=== PATIENT | female | born 1940 | race Caucasian/White ===

== ENCOUNTER 2016-08-13 19:38 | Observation (INO) | payer OTHER, MEDICARE ==
[~2016-08-13] VITALS: Ht 165.1 cm; Wt 95.9 kg
[2016-08-13 19:54] LABS: POINT-OF-CARE METER ID UU14100415; POINT-OF-CARE USER ID NUTMMM10
[2016-08-13 20:33] LABS: HEMATOCRIT 45.8 % (36.0-46.0); MCH 29.5 PG (29.0-34.0); MCHC 32.5 G/DL (30.0-36.0); MCV 90.7 FL (83-99); MEAN PLAT.VOLUME 10.2 uM^3 (9.5-12.4); PLATELET COUNT 435 K/uL (156-360); RBC DIS.WIDTH-SD 42.6 % (39-53); RED BLOOD COUNT 5.05 M/uL (3.80-5.20)
[2016-08-13 21:34] LABS: CHLORIDE 105 mEq/L (99-109); SODIUM 142 mEq/L (136-147)
[2016-08-13 21:37] LABS: GLUCOSE 125 mg/dL (70-99)
[2016-08-13 21:38] LABS: ANION GAP 12 MEQ/L (2-14)
[2016-08-13 21:39] LABS: TOTAL BILIRUBIN 1.1 mg/dL (0.0-1.0)
[2016-08-13 21:40] LABS: ALKALINE PHOSPHATASE 102 IU/L (3-129); GFR ESTIMATE (CALCULATED) > 59 mL/min/
[2016-08-13 21:41] LABS: UREA NITROGEN (BUN) 17 mg/dL (9-23)
[2016-08-13 21:44] LABS: TROP-I INTERPRETATION NEGATIVE; TROPONIN-I < 0.01 ng/mL (0.0-0.30)
[2016-08-14] MEDS ORDERED: XARELTO20 MG PO (00:47)
[2016-08-14] MEDS ORDERED: OXYBUTYNIN CHLOR5 MG PO (00:48)
[2016-08-14] MEDS ORDERED: ATORVASTATIN CA40 MG PO (00:48)
[2016-08-14] MEDS ORDERED: DONEPEZIL HCL10 MG PO (00:48)
[2016-08-14] MEDS ORDERED: SYNTHROID125 MCG PO (00:48)
[2016-08-14] MEDS ORDERED: TRAMADOL HCL50 MG PO (00:48)
[2016-08-14 04:18] LABS: HDL CHOLESTEROL 60 MG/DL (Desirable>=50); LDL CHOLESTEROL 136 mg/dL (Desirable<100); NON-HDL CHOLESTEROL 165 mg/dL (Desirable<160); TOTAL CHOLESTEROL 225 mg/dL (Desirable<200); TRIGLYCERIDES 145 MG/DL (Normal: <150)
[2016-08-14 08:00] VITALS: BP 132/68
[2016-08-14 08:05] VITALS: BP 123/79
[2016-08-14 10:21] LABS: Estimated Average Glucose 128 mg/dL (70-123); HEMOGLOBIN A1c (GLYCOHEMOGLOB) 6.1 % HGB (Below 5.7)
[2016-08-14 11:38] VITALS: BP 124/77
[2016-08-14 16:47] VITALS: BP 124/59
[2016-08-14 20:00] VITALS: BP 121/81
[2016-08-14 22:28] LABS: ADD MIUA? NO; BILIRUBIN NEGATIVE; BLOOD NEGATIVE; COLOR STRAW ((YELLOW)); GLUCOSE (STRIP) NEGATIVE; KETONES NEGATIVE; LEUKOCYTES NEGATIVE; NITRITE NEGATIVE; PROTEIN (STRIP) NEGATIVE; SPECIFIC GRAVITY 1.008 (1.000-1.030); UCUL ADDED? NO; UROBILINOGEN 0.2 MG/DL (0.2-1.0)
[2016-08-15 00:30] VITALS: BP 128/61
[2016-08-15 00:33] VITALS: BP 113/61
[2016-08-15 04:56] VITALS: BP 149/65
[2016-08-15 05:24] LABS: HEMATOCRIT 40.2 % (36.0-46.0); MCH 29.6 PG (29.0-34.0); MCHC 32.6 G/DL (30.0-36.0); MCV 90.7 FL (83-99); MEAN PLAT.VOLUME 9.9 uM^3 (9.5-12.4); PLATELET COUNT 314 K/uL (156-360); RBC DIS.WIDTH-SD 43.1 % (39-53); RED BLOOD COUNT 4.43 M/uL (3.80-5.20); WHITE BLOOD COUNT 6.5 K/uL (4.1-10.2)
[2016-08-15 09:19] VITALS: BP 133/75
[2016-08-15] MEDS ORDERED: ASPIR-LOW81 MG PO (10:11)
[2016-08-15] MEDS ORDERED: ANTIVERT12.5 MG PO (10:11)
[2016-08-15] MEDS ORDERED: ZOFRAN4 MG PO (10:12)
[2016-08-15 11:44] VITALS: BP 128/73
[2016-08-15] MEDS ORDERED: TYLENOL REGULA325 MG PO (14:41)
== END 2016-08-15 12:55 ==
LOC: EME → EDBD 19:38 → EME 19:38 → EDOF 08-14 00:50 → 5WEST 08-14 00:50 → EDOF 08-14 00:50 → 5WEST 08-14 07:37
PROVIDERS: Emergency Medicine; Hospitalist
DX: R10.9 Unspecified abdominal pain (principal); H81.10 Benign paroxysmal vertigo, unspecified ear; R11.2 Nausea with vomiting, unspecified; E03.9 Hypothyroidism, unspecified; F03.90 Unspecified dementia, unspecified severity, without behavioral disturbance, psychotic disturbance, mood disturbance, and anxiety
CPT/HCPCS: 70551; 71010; 74176; 80053; 80061; 81003; 82948; 83036; 84439; 84443; 84481; 84484; 85027; 93005; 97530 GP; 99281; 99285; G0378; G8978 GP CJ; G8979 GP CH; G8987 GO CJ; G8988 CI; J2405; J2765; J7030

== ENCOUNTER 2016-08-15 10:48 | Inpatient (IN) | payer OTHER, MEDICARE ==
[~2016-08-15] VITALS: Ht 162.6 cm; Wt 96.2 kg
[~2016-08-15 10:48] MED LIST: ANTIVERT12.5 MG PO; ASPIR-LOW81 MG PO; ATORVASTATIN CA40 MG PO; DONEPEZIL HCL10 MG PO; OXYBUTYNIN CHLOR5 MG PO; SYNTHROID125 MCG PO; TRAMADOL HCL50 MG PO; XARELTO20 MG PO; ZOFRAN4 MG PO
[2016-08-15 14:17] VITALS: BP 136/64
[2016-08-15] MEDS ORDERED: TYLENOL REGULA325 MG PO (14:41)
[2016-08-16 04:42] VITALS: BP 111/65
[2016-08-16 07:08] LABS: HEMATOCRIT 41.7 % (36.0-46.0); MCH 30.3 PG (29.0-34.0); MCHC 33.3 G/DL (30.0-36.0); PLATELET COUNT 339 K/uL (156-360); RBC DIS.WIDTH-SD 42.9 % (39-53); RED BLOOD COUNT 4.58 M/uL (3.80-5.20); WHITE BLOOD COUNT 5.4 K/uL (4.1-10.2)
[2016-08-16 07:33] LABS: ALKALINE PHOSPHATASE 82 IU/L (3-129); ANION GAP 7 MEQ/L (2-14); CHLORIDE 101 MEQ/L (99-109); GFR ESTIMATE (CALCULATED) > 59 mL/min/; GLUCOSE 102 mg/dL (70-99); POTASSIUM 3.9 MEQ/L (3.7-5.4); SAMPLE HEMOLYSIS CHECK 0; SAMPLE ICTERIC CHECK 0; SAMPLE LIPEMIA CHECK 0; SODIUM 137 MEQ/L (136-147); TOTAL BILIRUBIN 1.5 MG/DL (0.0-1.0); UREA NITROGEN (BUN) 12 mg/dL (9-23)
[2016-08-16 15:58] VITALS: BP 155/76
[2016-08-16 16:15] VITALS: BP 136/90
[2016-08-17 04:46] VITALS: BP 139/64
[2016-08-17 15:00] VITALS: BP 120/67
[2016-08-18 06:28] VITALS: BP 137/70
[2016-08-18 15:10] VITALS: BP 136/77
[2016-08-19 05:11] VITALS: BP 119/65
[2016-08-19 15:37] VITALS: BP 115/68
[2016-08-20 05:20] VITALS: BP 139/75
[2016-08-20 16:29] VITALS: BP 130/63
[2016-08-20] MEDS ORDERED: BALANCE B-501 EAC1 PO (17:35)
[2016-08-20] MEDS ORDERED: SENNA PLUS TAB1 EACH PO (17:35)
[2016-08-20] MEDS ORDERED: SYNTHROID125 MCG PO (17:35)
[2016-08-20] MEDS ORDERED: THERAGRAN1 TABLET PO (17:36)
[2016-08-20 18:45] LABS: ALKALINE PHOSPHATASE 86 IU/L (3-129); ANION GAP 8 MEQ/L (2-14); CHLORIDE 102 MEQ/L (99-109); GFR ESTIMATE (CALCULATED) 52 mL/min/; GLUCOSE 100 mg/dL (70-99); POTASSIUM 4.1 MEQ/L (3.7-5.4); SAMPLE HEMOLYSIS CHECK 0; SAMPLE ICTERIC CHECK 0; SAMPLE LIPEMIA CHECK 0; SODIUM 138 MEQ/L (136-147); UREA NITROGEN (BUN) 19 mg/dL (9-23)
[2016-08-20 18:56] LABS: TOTAL BILIRUBIN 1.1 MG/DL (0.0-1.0)
[2016-08-20 19:18] LABS: HEMATOCRIT 45.5 % (36.0-46.0); MCH 29.2 PG (29.0-34.0); MCHC 31.9 G/DL (30.0-36.0); MCV 91.7 FL (83-99); MEAN PLAT.VOLUME 10.2 uM^3 (9.5-12.4); PLATELET COUNT 429 K/uL (156-360); RBC DIS.WIDTH-CV 12.9 % (11.8-14.6); RBC DIS.WIDTH-SD 43.3 % (39-53); RED BLOOD COUNT 4.96 M/uL (3.80-5.20); WHITE BLOOD COUNT 8.2 K/uL (4.1-10.2)
[2016-08-21 04:55] VITALS: BP 129/62
== END 2016-08-21 14:43 | DRG 125 ==
LOC: 3WEST 10:48
PROVIDERS: Physical Medicine & Rehabilitation Pain Medicine
PROC: F07M0ZZ Range of Motion and Joint Mobility Treatment of Musculoskeletal System - Whole Body (ICD-10-PCS; principal; 2016-08-15)
DX: H55.09 Other forms of nystagmus (principal); D68.59 Other primary thrombophilia; F03.90 Unspecified dementia, unspecified severity, without behavioral disturbance, psychotic disturbance, mood disturbance, and anxiety; R42 Dizziness and giddiness; H93.3X1 Disorders of right acoustic nerve; R11.2 Nausea with vomiting, unspecified; Z74.09 Other reduced mobility; E03.9 Hypothyroidism, unspecified; E78.00 Pure hypercholesterolemia, unspecified; G62.9 Polyneuropathy, unspecified; G56.00 Carpal tunnel syndrome, unspecified upper limb; J98.11 Atelectasis; Z68.36 Body mass index [BMI] 36.0-36.9, adult; R10.9 Unspecified abdominal pain; R26.2 Difficulty in walking, not elsewhere classified; R41.89 Other symptoms and signs involving cognitive functions and awareness; R45.1 Restlessness and agitation; R51 Headache; R32 Unspecified urinary incontinence; E66.9 Obesity, unspecified
CPT/HCPCS: 80053; 85027; 97110 GO; 97530 GP; 97532 GN